=== PATIENT | female | born 1960 | race Caucasian/White ===

== ENCOUNTER 2022-07-03 18:30 | Emergency (ER) | payer BC, SELFPAY ==
[2022-07-03 19:28] VITALS: BP 129/78; PULSE 11; RESP 16; TEMP 37.3; O2SAT 95; BMI 39.3
[2022-07-03 20:05] LABS: Add Manual Diff / Slide Review NO; Basophils Absolute Auto 0 /uL (0-100); Basophils Percent Auto 0.2 % (0-2); Eosinophils Absolute Auto 0 /uL (0-450); Eosinophils Percent Auto 0.1 % (2-4); Hematocrit 41.8 % (36-46); Hemoglobin 14.2 g/dL (12.0-16.0); Lymphocytes Absolute Auto 700 /uL (1100-4500); Lymphocytes Percent Auto 4.9 % (25-40); Mean Corpuscular HGB Conc 33.8 % (30-36); Mean Corpuscular Volume 85.7 fL (80-100); Monocytes Absolute Auto 600 /uL (0-900); Monocytes Percent Auto 4.4 % (3-14); Neutrophils Absolute Auto 12100 /uL (1500-7000); Neutrophils Percent Auto 90.4 % (50-75); Platelet Count 231 X10^3/uL (150-400); Red Blood Cell Count 4.88 X10^6/uL (4.0-5.2); Red Cell Distribution Width 15.3 % (11.6-14.8); White Blood Cell Count 13.4 X10^3/uL (4.5-11.0)
[2022-07-03 20:17] LABS: Albumin 4.2 g/dL (3.5-5.0); Albumin Globulin Ratio 1.3 (1.0-2.8); Alkaline Phosphatase 229 U/L (38-126); BUN Creatinine Ratio 10.7 (6-22); Bilirubin Total 5.1 mg/dL (0.2-1.3); Blood Urea Nitrogen 11 mg/dL (7-17); Calcium 8.8 mg/dL (8.4-10.2); Carbon Dioxide 22 mmol/L (22-32); Chloride 100 mmol/L (98-107); Estimated Glomerular Filt Rate > 60 mL/min (>60); Globulin 3.3 g/dL (1.7-4.1); Glucose 117 mg/dL (80-110); HEMOLYSIS < 15 (0-50); Lipase 31 U/L (23-300); Potassium 3.9 mmol/L (3.4-5.1); Sodium 132 mmol/L (137-145); Total Protein 7.5 g/dL (6.3-8.2)
[2022-07-03 20:24] LABS: Alanine Aminotransferase 1031 IU/L (<35); Aspartate Aminotransferase 825 IU/L (14-36)
[2022-07-03 20:44] LABS: Appearance Urine UA CLEAR; Bilirubin Urine UA 3+ (NEGATIVE); Color Urine UA YELLOW; Glucose Urine UA NEGATIVE (Negative); Ketones Urine UA 3+ (NEGATIVE); Leukocyte Esterase Urine UA NEGATIVE (NEGATIVE); Nitrite Urine UA POSITIVE (Negative); Occult Blood Urine UA NEGATIVE (Negative); Protein Urine UA 2+ (Negative)
[2022-07-03 20:56] LABS: Ictotest Urine Positive (Negative)
[2022-07-03 20:57] LABS: Bacteria Urine Few (2-10); Culture Indicated Urine Specimen Cultured; RBC Urine 0-1/HPF (0-5/HPF); Squamous Epithelial Cell Urine 1-5 /HPF (0-5/HPF); Transitional Epi Cells Urine 1-5/HPF (0-5/HPF); WBC Urine 5-10/HPF (0-5/HPF)
--- NOTE | 2022-07-03 21:15 | DI.US.S_ITS ---
PROCEDURE: US ABDOMEN LIMITED INDICATIONS: RUQ PAIN TECHNIQUE: Real-time scanning was performed of the abdominal and retroperitoneal organs, with image documentation. COMPARISON: None. FINDINGS: Liver: Liver is normal in size and demonstrates increased hepatic echotexture. Gallbladder: There are gallstones. Two nonmobile stones are seen in the gallbladder neck. No gallbladder wall thickening, pericholecystic fluid or sonographic Arredondo's sign. Biliary ducts: Intrahepatic bile ducts are non-dilated. Extrahepatic bile duct caliber measures 2.9 mm. Normal is 6-7 mm or less in diameter, or 10 mm or less post-cholecystectomy. Pancreas: Visualized portions of the pancreas are sonographically normal. Miscellaneous: No free abdominal fluid. IMPRESSION: 1. Cholelithiasis. No ultrasound findings to suggest acute cholecystitis. 2. Diffusely increased hepatic echotexture. This finding is most likely secondary to hepatic fatty infiltration although other hepatocellular disease may have a similar appearance. Recommend clinical correlation. Dictated by: Evelyn Monge M.D. on 07/03/2022 at 22:02 Approved by: Evelyn Monge M.D. on 07/03/2022 at 22:04
--- NOTE | 2022-07-03 21:15 | ED_ITS ---
HPI - General Adult General Chief complaint: Abdominal Pain Stated complaint: Abd pain, fever, vomiting x1 day Time Seen by Provider: 07/03/22 21:05 Source: patient Mode of arrival: Ambulatory Limitations: no limitations History of Present Illness HPI narrative: Patient is a 61-year-old female who is here for evaluation of 1 day what started out as upper abdominal pain and fever and vomiting. She stated that those symptoms almost completely resolved however now is having lower abdominal tenderness. She states that she is not have any specific dysuria but states that her urine is dark in color. She is not having any back pain. Related Data Home Medications Medication Instructions Recorded Confirmed esomeprazole magnesium 20 mg 20 mg PO DAILY 07/03/22 07/03/22 capsule,delayed release (Nexium) levothyroxine 88 mcg tablet 88 mcg PO 07/03/22 07/03/22 (Synthroid) mometasone-formoterol HFA 200 g inhalation 07/03/22 07/03/22 mcg-5 mcg/actuation aerosol inhaler (Dulera) valacyclovir 500 mg tablet 500 mg PO 07/03/22 07/03/22 Previous Rx's Medication Instructions Recorded cephalexin 500 mg capsule 500 mg PO BID 7 days #14 caps 07/03/22 Allergies Allergy/AdvReac Type Severity Reaction Status Date / Time Penicillins Allergy Unknown Verified 07/03/22 21:23 Review of Systems Constitutional Constitutional: Reports system reviewed and no additional complaints, except as documented Cardiovascular Cardiovascular: Reports system reviewed and no additional complaints, except as documented Gastrointestinal Gastrointestinal: Reports system reviewed and no additional complaints, except as documented Genitourinary Genitourinary: Reports system reviewed and no additional complaints, except as documented Integumentary/Breasts Skin/Breast: Reports system reviewed and no additional complaints, except as documented Neurologic Neurologic: Reports system reviewed and no additional complaints, except as documented Hematologic/Lymphatic On Anticoagulants: No Patient History Social History Smoking Status: Never smoker Smoking Status: Never smoker Substance Use Type: does not use Exam Initial Vital Signs Initial Vital Signs: Vital Signs Temperature 99.2 F 07/03/22 19:28 Pulse Rate 11 L 07/03/22 19:28 Respiratory Rate 16 07/03/22 19:28 Blood Pressure 129/78 07/03/22 19:28 Pulse Oximetry 95 07/03/22 19:28 Oxygen Delivery Method Room Air 07/03/22 19:28 Const General: cooperative and comfortable HENMT Head: normal to inspection and normocephalic Resp Effort & Inspection: normal respiratory effort GI Inspection: normal to inspection and non-distended Palpation: tender (Very mild tenderness epigastric region) Skin General: no rashes or lesions noted Neuro General: patient alert, patient awake and moves all extremities Extrem General: capillary refill normal Course Orders Ordered: ED Orders 07/03/22 21:15 US abdomen limited Stat Discontinued Medications Acetaminophen (Acetaminophen 325 Mg Tablet) 650 mg PO NOW ONE Stop: 07/03/22 22:20 Last Admin: 07/03/22 22:45 Dose: 650 mg Documented By: LIDA Cephalexin HCl (Cephalexin 250 Mg Capsule) 500 mg PO NOW ONE Stop: 07/03/22 22:20 Last Admin: 07/03/22 22:45 Dose: 500 mg Documented By: LIDA Ondansetron HCl (Ondansetron 4 Mg Odt) 4 mg PO NOW PRN PRN Reason: Nausea And Vomiting Ondansetron HCl (Ondansetron 4 Mg/2 Ml Inj) 4 mg IV NOW PRN PRN Reason: Nausea And Vomiting Vital Signs Vital signs: Vital Signs - 8 hr 07/03/22 22:45 07/03/22 22:48 Temperature 99.8 F H 99.8 F H Pulse Rate 97 H Respiratory Rate 16 Blood Pressure 170/90 H Pulse Oximetry 97 Oxygen Delivery Method Room Air Medical Decision Making Lab Data Lab results reviewed: Yes I reviewed the patient's lab results. 07/03/22 19:46 07/03/22 19:46 Labs: Lab Results 07/03/22 07/03/22 07/03/22 Range/Units 19:46 19:46 19:50 WBC 13.4 H (4.5-11.0) X10^3/uL RBC 4.88 (4.0-5.2) X10^6/uL Hgb 14.2 (12.0-16.0) g/dL Hct 41.8 (36-46) % MCV 85.7 (80-100) fL MCH 29.0 (26-34) PG MCHC 33.8 (30-36) % RDW 15.3 H (11.6-14.8) % Plt Count 231 (150-400) X10^3/uL Neut % (Auto) 90.4 H (50-75) % Lymph % (Auto) 4.9 L (25-40) % Gaines % (Auto) 4.4 (3-14) % Eos % (Auto) 0.1 L (2-4) % Baso % (Auto) 0.2 (0-2) % Neut # (Auto) 18543 H (8061-7062) /uL Lymph # (Auto) 700 L (0418-6520) /uL Gaines # (Auto) 600 (0-900) /uL Eos # (Auto) 0 (0-450) /uL Baso # (Auto) 0 (0-100) /uL Sodium 132 L (137-145) mmol/L Potassium 3.9 (3.4-5.1) mmol/L Chloride 100 (98-107) mmol/L Carbon Dioxide 22 (22-32) mmol/L BUN 11 (7-17) mg/dL Creatinine 1.03 (0.52-1.04) mg/dL Estimated GFR > 60 (>60) mL/min BUN/Creatinine Ratio 10.7 (6-22) Glucose 117 H (80-110) mg/dL Calcium 8.8 (8.4-10.2) mg/dL Total Bilirubin 5.1 H (0.2-1.3) mg/dL AST 825 H (14-36) IU/L ALT 1031 H (<35) IU/L Alkaline Phosphatase 229 H (38-126) U/L Total Protein 7.5 (6.3-8.2) g/dL Albumin 4.2 (3.5-5.0) g/dL Globulin 3.3 (1.7-4.1) g/dL Albumin/Globulin Ratio 1.3 (1.0-2.8) Lipase 31 (23-300) U/L Urine Color Yellow Urine Appearance Clear Urine pH 6.0 (4.5-8.0) Ur Specific [place] 1.020 (1.000-1.035) Urine Protein 2+ H (Negative) Urine Glucose (UA) Negative (Negative) g/dL Urine Ketones 3+ H (NEGATIVE) Urine Occult Blood Negative (Negative) Urine Nitrate Positive H (Negative) Urine Bilirubin 3+ H (NEGATIVE) Ur Bilirubin Confirm Positive H (Negative) Urine Urobilinogen 1.0 (0.2) E.U./dL Ur Leukocyte Esterase Negative (NEGATIVE) Urine RBC 0-1/hpf (0-5/HPF) Urine WBC 5-10/hpf H (0-5/HPF) Ur Squamous Epith Cells 1-5 /hpf (0-5/HPF) Ur Transition Epith Cell 1-5/hpf (0-5/HPF) Urine Bacteria Few (2-10) H (None) Ur Culture Indicated? Specimen cultured Imaging Data US - abdomen: Radiologist's Impression: PROCEDURE:? US ABDOMEN LIMITED ? INDICATIONS:? RUQ PAIN ? TECHNIQUE:? Real-time scanning was performed of the abdominal and retroperitoneal organs, with image documentation.? ? COMPARISON:? None. ? FINDINGS:? ? Liver:? Liver is normal in size and demonstrates increased hepatic echotexture.? ? Gallbladder:? There are gallstones.? Two nonmobile stones are seen in the gallbladder neck. No gallbladder wall thickening, pericholecystic fluid or sonographic Arredondo's sign. ? Biliary ducts:? Intrahepatic bile ducts are non-dilated.? Extrahepatic bile duct caliber measures 2.9 mm.? Normal is 6-7 mm or less in diameter, or 10 mm or less post-cholecystectomy.? ? Pancreas:? Visualized portions of the pancreas are sonographically normal.? ? Miscellaneous:? No free abdominal fluid.? ? ? IMPRESSION:? ? 1. Cholelithiasis.? No ultrasound findings to suggest acute cholecystitis. 2.? Diffusely increased hepatic echotexture. This finding is most likely secondary to hepatic fatty infiltration although other hepatocellular disease may have a similar appearance. Recommend clinical correlation. [facility] Narrative Medical decision making narrative: Initially patient had epigastric abdominal pain and she does an elevation in her LFTs and also bilirubin. She does have cholelithiasis without signs of acute cholecystitis. I suspect that she possibly passed a stone as she is now not having discomfort in this area. Patient does have a nitrite positive urine and states she does have dark-colored urine. I have low suspicion for pyeloneph ritis. Patient has a leukocytosis and this could be because of her urinary tract infection or potentially even a stress reaction because of passing a stone. Will put the patient on antibiotics for urinary tract infection. There is no indication for acute surgical consultation. She was informed that she needs to follow-up when she returns home to talk about potentially having her gallbladder removed. She was given return precautions. She expressed understanding and agreement. Discharge Plan Departure Patient Disposition: Home Clinical Impression: Urinary tract infection, Cholelithiasis Instructions: DI for Gallstones, DI for Urinary Tract Infection (UTI) Activity Restrictions/Additional Instructions: I do recommend that you start taking the antibiotics as directed. When you retu rn home I do recommend that you follow-up with your primary doctor to have a referral to see General surgery as you may need to have her gallbladder removed. A urine culture was pending at the time of your discharge. We will contact you if we need to change any antibiotics based on this. Return to the emergency department for new or worsening symptoms. You can take Tylenol or ibuprofen for any fevers or chills or body aches. Prescriptions: New cephalexin 500 mg capsule 500 mg PO BID 7 Days Qty: 14 0RF No Action valacyclovir 500 mg tablet 500 mg PO levothyroxine [Synthroid] 88 mcg tablet 88 mcg PO Patient Comments: TAKE 1 TABLET BY MOUTH EVERY DAY Dulera 200-5 mcg/actuation HFA aerosol inhaler inhalation esomeprazole magnesium [Nexium] 20 mg capsule,delayed release(DR/EC) 20 mg PO DAILY Referrals: Calista Mitchell PA-C [Primary Care Provider] - Stand Alone Forms: Patient Portal/API
[2022-07-03 22:45] VITALS: TEMP 37.7
[2022-07-03] MEDS: cephALEXin 250 MG CAPSULE 500 MG PO (22:45)
[2022-07-03] MEDS: ACETAMINOPHEN 325 MG TABLET 650 MG PO (22:45)
[2022-07-03 22:48] VITALS: BP 170/90; PULSE 97; RESP 16; TEMP 37.7; O2SAT 97
== END 2022-07-03 22:48 | disposition home or self-care (01) ==
PROVIDERS: Emergency Provider Emergency Medicine; PCP Physician Assistant
DX: K80.20 Calculus of gallbladder without cholecystitis without obstruction (principal); N39.0 Urinary tract infection, site not specified
CPT/HCPCS: 36415; 76705; 80053; 81001; 83690; 85025; 87086; 99284